=== PATIENT | female | born 1930 | race Caucasian/White ===

== ENCOUNTER 2022-02-28 08:57 | Outpatient (CLI) | payer MEDICARE | END 2022-02-28 08:58 | disposition home or self-care (01) | LOC: CSHCT 08:57 | PROVIDERS: ATTEND Nurse Practitioner | DX: Z01.810 Encounter for preprocedural cardiovascular examination (principal); I48.21 Permanent atrial fibrillation; K92.2 Gastrointestinal hemorrhage, unspecified; Z53.9 Procedure and treatment not carried out, unspecified reason | CPT/HCPCS: 71275; 80053; 82565; 85027; 85610; 86850; 86900; 86901; U0003; U0005 ==